=== PATIENT | female | born 1955 | race Two or more races ===

== ENCOUNTER 2018-02-23 23:00 | Emergency (ER) | payer SELFPAY ==
[~2018-02-23] VITALS: Ht 162.6 cm; Wt 59.0 kg
[2018-02-23 23:16] VITALS: BP 146/90
== END 2018-02-23 23:47 | disposition left against medical advice (07) ==
LOC: ER 23:16
DX: Z53.21 Procedure and treatment not carried out due to patient leaving prior to being seen by health care provider (principal)